=== PATIENT | male | born 1970 | race Hispanic/Latino ===

== ENCOUNTER 2018-12-22 08:42 | Emergency (ER) | payer SELFPAY ==
[~2018-12-22] VITALS: Ht 167.6 cm; Wt 60.0 kg
[2018-12-22] MEDS ORDERED: BACTRIM DS1 TAB PO (10:31)
[2018-12-22 10:34] VITALS: BP 118/72
== END 2018-12-22 11:00 | disposition home or self-care (01) | DRG 607 ==
LOC: ED 08:42
DX: B07.9 Viral wart, unspecified (principal)